=== PATIENT | male | born 1975 | race Caucasian/White ===

== ENCOUNTER 2022-01-06 18:21 | Inpatient (IN) | payer OTHER, SELFPAY ==
[2022-01-06] MEDS ORDERED: Famotidine/PF 20 mg/2ml Vial ONE (18:38)
[2022-01-06] MEDS ORDERED: methylPREDNISolone Sod Succ/PF 125 MG/2 ML VIAL ONE (18:38)
[2022-01-06] MEDS ORDERED: EPINEPHrine 1 MG/ML AMP ONE (18:38)
[2022-01-06 20:24] LABS: #Basophils 0.1 10x3/uL (0.0-0.2); #Neutrophils 11.3 10x3/uL (1.5-8.4); %Basophils 0.4 % (0.0-2.0); %Eosinophils 0.3 % (0.0-6.0); %Lymphocytes 6.8 % (18.0-47.0); %Monocytes 7.3 % (0.0-10.0); %Neutrophils 84.7 % (40.0-75.0); Hemoglobin 12.9 g/dL (13.5-17.5); Mean Corpuscular HGB CONC 35.5 g/dL (32.0-36.0); Mean Corpuscular Hemoglobin 29.8 pg (27.0-33.0); Mean Corpuscular Volume 83.8 fl (81.2-95.1); Mean Platelet Volume 9.5 fl (7.4-10.4); Platelet Count 195 10x3/uL (150-450); RBC Distribution Width 12.8 % (11.5-14.5); Red Blood Cell (RBC) Count 4.33 10x6/uL (4.32-5.72); White Blood Cell (WBC) Count 13.4 10x3/uL (3.5-10.5)
[2022-01-06 20:37] LABS: ALT (SGPT) 20 U/L (8-55); AST (SGOT) 30 U/L (5-34); Albumin 3.5 g/dL (3.5-5.0); Alkaline Phosphatase 44 U/L (40-110); Anion Gap 15 mmol/L (10-20); BUN (Urea Nitrogen) 8 mg/dL (8.9-20.6); Bilirubin, Total 1.1 mg/dL (0.2-1.2); Calc. Creatinine Clearance 0 mL/min (70-130); Carbon Dioxide 22 mmol/L (22-29); Chloride 97 mmol/L (98-107); Globulin 2.6 g/dL (2.4-3.5); Glucose 148 mg/dL (70-105); Potassium 3.5 mmol/L (3.5-5.1); Protein, Total 6.1 g/dL (6.0-8.3); Sodium 130 mmol/L (136-145)
[2022-01-06] MEDS ORDERED: Rocuronium Bromide 10 MG/ML (10ML VIAL) ONE (20:55)
[2022-01-06] MEDS ORDERED: Lidocaine 1% w/Epinephrine 1:100K 20 ML VIAL ONE (21:05)
[2022-01-06] MEDS ORDERED: Acetaminophen 650 MG Suppository PR PRN (21:13)
[2022-01-06] MEDS ORDERED: Ondansetron PF 4 MG/2 ML Vial IVP PRN (21:13)
[2022-01-06] MEDS ORDERED: Propofol 1,000 MG/100 ML VIAL IV PRN ×2 (21:21→22:15)
[2022-01-06] MEDS ORDERED: Potassium Chloride 20 MEQ in Premix Bag 1 BAG IVPB SCH (21:30)
[2022-01-06] MEDS ORDERED: levETIRAcetam in NS 500 MG in Premix Bag 1 BAG IVPB SCH (21:30)
[2022-01-06] MEDS ORDERED: levETIRAcetam 500 MG/5 ML VIAL SLOW IVP SCH (21:45)
[2022-01-06] MEDS ORDERED: Piperacillin/Tazobactam 3.375 GM VIAL ONE (21:46)
[2022-01-06] MEDS ORDERED: Fentanyl 100 MCG/2 ML VIAL ONE (22:13)
[2022-01-06] MEDS ORDERED: Fentanyl BOLUS 250 ML IVPB PRN (22:15)
[2022-01-06] MEDS ORDERED: Ventilator Sedation Protocol 1 EACH FS SCH (22:15)
[2022-01-06] MEDS ORDERED: DISCONTINUE PREVIOUS NARCOTIC PAIN MEDICATIONS AND BENZODIAZEPINES FS SCH (22:15)
[2022-01-06] MEDS ORDERED: Propofol BOLUS 1,000 MG/100 ML VIAL IV PRN (22:15)
[2022-01-06] MEDS ORDERED: fentaNYL Citrate-0.9 % NaCl/PF 100 ML IVPB SCH (22:15)
[2022-01-06] MEDS ORDERED: Lorazepam 2 MG/ML VIAL SLOW IVP PRN (22:15)
[2022-01-06] MEDS ORDERED: Morphine 2 MG/ML VIAL SLOW IVP PRN (22:15)
[2022-01-06 22:43] LABS: SARS-CoV-2 NAA Rapid Test Not Detected (NotDetected)
[2022-01-06] MEDS: Famotidine/PF 20 mg/2ml Vial SLOW IVP SCH (23:59)
[2022-01-06] MEDS: diphenhydrAMINE 50 MG/ML VIAL IVP SCH (23:59)
[2022-01-06] MEDS: methylPREDNISolone Sod Succ/PF 125 MG/2 ML VIAL IVP SCH (23:59)
[2022-01-07 00:47] VITALS: BMI 34.0
[2022-01-07 01:44] LABS: Actual Bicarbonate (HCO3v) 24 mEq/L (22-28); Base Excess -1.6 mEq/L (-2.0 to +3.0); Calcium, Ionized (venous) 1.02 mmol/L (1.16-1.32); Chloride (VBG) 97 mmol/L (98-106); Hemoglobin (Hb) 13.5 g/dL (13.1-17.2); Potassium (VBG) 3.58 mmol/L (3.70-5.30); Puncture Site Other Site; Sodium 129.6 mmol/L (133-146); pH (venous) 7.35 (7.32-7.43)
[2022-01-07] MEDS ORDERED: Sodium Chloride 0.9% 1,000 ML IV SCH (03:45)
[2022-01-07 04:20] LABS: Mean Corpuscular HGB CONC 34.3 g/dL (32.0-36.0); Mean Corpuscular Hemoglobin 29.1 pg (27.0-33.0); Mean Platelet Volume 9.9 fl (7.4-10.4); Platelet Count 201 10x3/uL (150-450); RBC Distribution Width 12.6 % (11.5-14.5); Red Blood Cell (RBC) Count 4.46 10x6/uL (4.32-5.72); White Blood Cell (WBC) Count 10.1 10x3/uL (3.5-10.5)
[2022-01-07 04:28] LABS: ALV-art Gradient 475.425 mmHg (0-20); Actual Bicarbonate (HCO3a) 21.6 mEq/L (22-28); Base Excess (BEa) -3.8 mEq/L (-2.0 to +3.0); CO2 Tension 40.3 mmHg (35.0-45.0); Calcium, Ionized (arterial) 1.07 mmol/L (1.12-1.30); Carboxyhemoglobin (COHb) 0.2 gm% (0.0-3.0); Hemoglobin (Hb) 14.3 g/dL (14.0-18.0); O2 Tension (PaO2), arterial 187.2 mmHg (80.0-100.0); Puncture Site LRA; pH, Arterial 7.35 (7.35-7.45)
[2022-01-07 04:33] LABS: ALT (SGPT) 18 U/L (8-55); AST (SGOT) 24 U/L (5-34); Albumin 3.6 g/dL (3.5-5.0); Alkaline Phosphatase 51 U/L (40-110); Anion Gap 16 mmol/L (10-20); BUN (Urea Nitrogen) 10 mg/dL (8.9-20.6); Bilirubin, Total 1.1 mg/dL (0.2-1.2); Calc. Creatinine Clearance 134 mL/min (70-130); Carbon Dioxide 21 mmol/L (22-29); Chloride 102 mmol/L (98-107); Globulin 2.7 g/dL (2.4-3.5); Glucose 161 mg/dL (70-105); Potassium 4.1 mmol/L (3.5-5.1); Protein, Total 6.3 g/dL (6.0-8.3); Sodium 135 mmol/L (136-145)
[2022-01-07] MEDS ORDERED: Albumin 25% 25 GM/100 ML BOT IVPB SCH (05:00)
[2022-01-07] MEDS: Famotidine/PF 20 mg/2ml Vial SLOW IVP SCH ×3 (05:07→21:10)
[2022-01-07] MEDS: Piperacillin/Tazobactam 3.375 GM in Sodium Chloride 0.9% 100 ML IVPB SCH ×3 (05:07→21:10)
[2022-01-07] MEDS: diphenhydrAMINE 50 MG/ML VIAL IVP SCH ×4 (05:07→23:53)
[2022-01-07] MEDS: methylPREDNISolone Sod Succ/PF 125 MG/2 ML VIAL IVP SCH ×3 (05:07→21:10)
[2022-01-07] MEDS ORDERED: Norepinephrine 8 MG/0.9% NS 250 ML IVPB SCH (05:30)
[2022-01-07] MEDS ORDERED: Lactated Ringer's 500 ML IV SCH (05:30)
[2022-01-07] MEDS: Sodium Chloride 0.9% 1,000 ML IV SCH ×4 (05:41→19:47)
[2022-01-07 06:19] LABS: MDiff Complete? YES
[2022-01-07 06:20] LABS: Platelet Morphology Comment Appears Adequate
[2022-01-07 06:21] LABS: Anisocytosis SLIGHT = 6-15 cells (100X) (0-5/hpf)
[2022-01-07 06:25] LABS: Band 17 % (5-11); Eosinophils 2 % (0-10); Lymphocytes 6 % (21-51); Monocytes 4 % (0-10); Neutrophil 71 % (42-75)
[2022-01-07] MEDS: levETIRAcetam 500 MG/5 ML VIAL SLOW IVP SCH ×2 (08:15→21:10)
[2022-01-07] MEDS: Enoxaparin Sodium 40 MG/0.4 ML SYRINGE SC SCH (08:15)
[2022-01-07] MEDS ORDERED: Iopamidol 370 76% 100 ML VIAL ONE (10:51)
[2022-01-08 04:27] LABS: #Monocytes 0.3 10x3/uL (0.0-1.1); #Neutrophils 10.1 10x3/uL (1.5-8.4); %Basophils 0.2 % (0.0-2.0); %Lymphocytes 5.7 % (18.0-47.0); %Monocytes 2.9 % (0.0-10.0); %Neutrophils 90.5 % (40.0-75.0); Hemoglobin 11.8 g/dL (13.5-17.5); Mean Corpuscular HGB CONC 35.3 g/dL (32.0-36.0); Mean Corpuscular Hemoglobin 29.7 pg (27.0-33.0); Mean Corpuscular Volume 84.1 fl (81.2-95.1); Platelet Count 239 10x3/uL (150-450); RBC Distribution Width 12.9 % (11.5-14.5); Red Blood Cell (RBC) Count 3.97 10x6/uL (4.32-5.72); White Blood Cell (WBC) Count 11.1 10x3/uL (3.5-10.5)
[2022-01-08 04:58] LABS: ALT (SGPT) 14 U/L (8-55); AST (SGOT) 15 U/L (5-34); Albumin 3.4 g/dL (3.5-5.0); Alkaline Phosphatase 42 U/L (40-110); Anion Gap 15 mmol/L (10-20); BUN (Urea Nitrogen) 14 mg/dL (8.9-20.6); Bilirubin, Total 0.5 mg/dL (0.2-1.2); Calc. Creatinine Clearance 159 mL/min (70-130); Calcium 8.2 mg/dL (7.8-10.44); Carbon Dioxide 19 mmol/L (22-29); Chloride 109 mmol/L (98-107); Globulin 2.6 g/dL (2.4-3.5); Glucose 157 mg/dL (70-105); Magnesium 2.2 mg/dL (1.6-2.6); Sodium 139 mmol/L (136-145)
[2022-01-08] MEDS: diphenhydrAMINE 50 MG/ML VIAL IVP SCH (05:17)
[2022-01-08] MEDS: Famotidine/PF 20 mg/2ml Vial SLOW IVP SCH ×3 (05:17→21:26)
[2022-01-08] MEDS: Piperacillin/Tazobactam 3.375 GM in Sodium Chloride 0.9% 100 ML IVPB SCH ×3 (05:18→21:26)
[2022-01-08] MEDS ORDERED: Piperacillin/Tazobactam 3.375 GM VIAL ONE (05:19)
[2022-01-08 05:20] LABS: Actual Bicarbonate (HCO3a) 22.7 mEq/L (22-28); Base Excess (BEa) -1.1 mEq/L (-2.0 to +3.0); CO2 Tension 34.7 mmHg (35.0-45.0); Calcium, Ionized (arterial) 1.14 mmol/L (1.12-1.30); Hemoglobin (Hb) 12.3 g/dL (14.0-18.0); O2 Tension (PaO2), arterial 94.2 mmHg (80.0-100.0); Potassium - ABG Lab 3.9 mmol/L (3.70-5.30); Puncture Site LRA; pH, Arterial 7.43 (7.35-7.45)
[2022-01-08 05:23] LABS: ALV-art Gradient 147.625 mmHg (0-20)
[2022-01-08] MEDS: methylPREDNISolone Sod Succ/PF 125 MG/2 ML VIAL IVP SCH ×3 (05:23→21:26)
[2022-01-08] MEDS: Sodium Chloride 0.9% 1,000 ML IV SCH ×3 (05:23→21:52)
[2022-01-08] MEDS: Enoxaparin Sodium 40 MG/0.4 ML SYRINGE SC SCH (07:58)
[2022-01-08] MEDS: levETIRAcetam 500 MG/5 ML VIAL SLOW IVP SCH ×2 (07:58→21:26)
[2022-01-08] MEDS ORDERED: Loratadine 10 MG TAB PO SCH (11:30)
[2022-01-08 13:28] LABS: Complement-C4 31.2 mg/dL (15-53)
[2022-01-08] MEDS: Budesonide 0.5 MG/2 ML NEB NEB SCH (19:24)
[2022-01-09] MEDS: Sodium Chloride 0.9% 1,000 ML IV SCH (05:29)
[2022-01-09] MEDS: methylPREDNISolone Sod Succ/PF 125 MG/2 ML VIAL IVP SCH ×3 (05:30→21:32)
[2022-01-09] MEDS: Famotidine/PF 20 mg/2ml Vial SLOW IVP SCH ×3 (05:30→21:33)
[2022-01-09] MEDS: Piperacillin/Tazobactam 3.375 GM in Sodium Chloride 0.9% 100 ML IVPB SCH ×3 (05:30→22:20)
[2022-01-09] MEDS: Budesonide 0.5 MG/2 ML NEB NEB SCH ×2 (07:16→17:19)
[2022-01-09] MEDS: Enoxaparin Sodium 40 MG/0.4 ML SYRINGE SC SCH (08:34)
[2022-01-09] MEDS: levETIRAcetam 500 MG/5 ML VIAL SLOW IVP SCH ×2 (08:34→21:32)
[2022-01-09] MEDS: Loratadine 10 MG TAB PO SCH (08:34)
[2022-01-09] MEDS: Fluticasone Propionate Nasal Spray 16 gm Bottle NASAL PRN (17:48)
[2022-01-10] MEDS: Famotidine/PF 20 mg/2ml Vial SLOW IVP SCH ×3 (05:30→21:12)
[2022-01-10] MEDS: Piperacillin/Tazobactam 3.375 GM in Sodium Chloride 0.9% 100 ML IVPB SCH ×3 (05:30→21:12)
[2022-01-10] MEDS: methylPREDNISolone Sod Succ/PF 125 MG/2 ML VIAL IVP SCH (05:31)
[2022-01-10] MEDS ORDERED: predniSONE 20 MG TAB PO SCH (08:00)
[2022-01-10] MEDS: Loratadine 10 MG TAB PO SCH (10:07)
[2022-01-10] MEDS: Enoxaparin Sodium 40 MG/0.4 ML SYRINGE SC SCH (10:07)
[2022-01-10] MEDS: levETIRAcetam 500 MG/5 ML VIAL SLOW IVP SCH ×2 (10:07→21:12)
[2022-01-10] MEDS: Budesonide 0.5 MG/2 ML NEB NEB SCH ×2 (11:18→19:15)
[2022-01-11] MEDS ORDERED: Sodium Chloride 0.9% 100 ML ONE (05:03)
[2022-01-11] MEDS ORDERED: Piperacillin/Tazobactam 3.375 GM VIAL ONE (05:03)
[2022-01-11] MEDS: Famotidine/PF 20 mg/2ml Vial SLOW IVP SCH ×2 (05:07→16:25)
[2022-01-11] MEDS: Piperacillin/Tazobactam 3.375 GM in Sodium Chloride 0.9% 100 ML IVPB SCH ×2 (05:07→16:25)
[2022-01-11] MEDS: Fluticasone Propionate Nasal Spray 16 gm Bottle NASAL PRN (06:23)
[2022-01-11] MEDS: levETIRAcetam 500 MG/5 ML VIAL SLOW IVP SCH (10:06)
[2022-01-11] MEDS: Enoxaparin Sodium 40 MG/0.4 ML SYRINGE SC SCH (10:06)
[2022-01-11] MEDS: Loratadine 10 MG TAB PO SCH (10:06)
[2022-01-11] MEDS: Budesonide 0.5 MG/2 ML NEB NEB SCH ×2 (10:30→18:54)
[2022-01-11 16:37] VITALS: BP 101/74; TEMP 97.6
== END 2022-01-11 19:40 | disposition home or self-care (01) | DRG 915 ==
LOC: CSHERS 18:21 → CSHIMCU 22:56 → CSHTELE 01-09 15:14
PROVIDERS: ADMIT Student in an Organized Health Care Education/Training Program; ATTEND Internal Medicine
PROC: 5A1945Z Respiratory Ventilation, 24-96 Consecutive Hours (ICD-10-PCS; principal; 2022-01-06)
PROC: 0BH18EZ Insertion of Endotracheal Airway into Trachea, Via Natural or Artificial Opening Endoscopic (ICD-10-PCS; 2022-01-06)
PROC: 0D9670Z Drainage of Stomach with Drainage Device, Via Natural or Artificial Opening (ICD-10-PCS; 2022-01-06)
PROC: 5A09357 Assistance with Respiratory Ventilation, Less than 24 Consecutive Hours, Continuous Positive Airway Pressure (ICD-10-PCS; 2022-01-06)
PROC: 3E033XZ Introduction of Vasopressor into Peripheral Vein, Percutaneous Approach (ICD-10-PCS; 2022-01-06)
DX: T78.3XXA Angioneurotic edema, initial encounter (principal); J96.01 Acute respiratory failure with hypoxia; J69.0 Pneumonitis due to inhalation of food and vomit; E87.1 Hypo-osmolality and hyponatremia; R65.10 Systemic inflammatory response syndrome (SIRS) of non-infectious origin without acute organ dysfunction; G40.909 Epilepsy, unspecified, not intractable, without status epilepticus; J45.909 Unspecified asthma, uncomplicated; G47.33 Obstructive sleep apnea (adult) (pediatric); R41.0 Disorientation, unspecified; Z20.822 Contact with and (suspected) exposure to COVID-19; Z79.01 Long term (current) use of anticoagulants; Z86.011 Personal history of benign neoplasm of the brain; Z88.8 Allergy status to other drugs, medicaments and biological substances; Z79.51 Long term (current) use of inhaled steroids; Z79.899 Other long term (current) drug therapy; Z98.890 Other specified postprocedural states; Z98.2 Presence of cerebrospinal fluid drainage device
CPT/HCPCS: 31500; 36415; 36600; 51702; 70450; 70491; 71045; 71046; 71270; 80053; 82785; 82805; 83735; 84145; 84484; 85025; 85652; 86140; 86160; 87040; 87070; 87077; 87205; 87804; 87807; 93005; 94002; 94003; 94640; 94660; 94760; 96365; 96368; 96372; 96375; 96376; J0171; J1200; J1650; J1953; J2060; J2543; J2704; J2930; J3010; J3480; J3490; J7050; J7120; J7512; J7626; P9047; Q9967; S0028; U0002